=== PATIENT | male | born 1990 ===

== ENCOUNTER 2017-10-30 12:21 | Emergency (ER) | payer SELFPAY ==
--- NOTE | 2017-10-30 15:03 | ED PDOC ---
History of Present Illness History of Present Illness: 26 year old male presents to the ED with a cough productive of white/ yellowish sputum for the last nine days, not associated with chest pain or shortness of breath. Patient is here visiting from [facility] since the beginning of August. Denies palpitations, fever, hemoptysis, leg pain, history of DVT or pulmonary embolism. PMD: none provided HPI: Influenza Time Seen by Provider: 10/30/17 13:51 Chief Complaint: Cough, Cold, Congestion Chief Complaint (Provider): Cough, Cold, Congestion History Per: Patient Exam Limitations: no limitations Have you had recent travel within the past 21 days to any of: No Onset/Duration Of Symptoms: Days (x 9) Symptoms include: cough Past Medical History Reviewed: Historical Data, Nursing Documentation, Vital Signs Vital Signs: Last Vital Signs Temp 96 F L 10/30/17 13:31 Pulse 68 10/30/17 13:31 Resp 20 10/30/17 13:31 BP 146/88 10/30/17 13:31 Pulse Ox 98 10/30/17 13:31 - Medical History PMH: No Chronic Diseases - Surgical History Surgical History: No Surg Hx - Family History Family History: States: Unknown Family Hx - Social History Current smoker - smoking cessation education provided: No - Home Medications Home Medications: Ambulatory Orders Medication Instructions Recorded Azithromycin [Zithromax] 250 mg PO DAILY #6 tab 10/30/17 Promethazine DM [Phenergan DM 5 - 10 ml PO Q8 PRN #120 ml 10/30/17 Syrup] - Allergies Allergies/Adverse Reactions: Allergies Allergy/AdvReac Type Severity Reaction Status Date / Time No Known Allergies Allergy Verified 10/30/17 13:31 Review of Systems ROS Statement: Except As Marked, All Systems Reviewed And Found Negative Respiratory: Positive for: Cough, Sputum (white yellow) Physical Exam - Reviewed Nursing Documentation Reviewed: Yes Vital Signs Reviewed: Yes - Physical Exam Appears: Positive for: Non-toxic, No Acute Distress Head Exam: Positive for: ATRAUMATIC, NORMOCEPHALIC Skin: Positive for: Normal Color, Warm, DRY Eye Exam: Positive for: EOMI, Normal appearance, PERRL ENT: Positive for: Normal ENT Inspection Cardiovascular/Chest: Positive for: Regular Rate, Rhythm Respiratory: Positive for: CNT, Normal Breath Sounds Neurologic/Psych: Positive for: Alert, Oriented (x 3) Medical Decision Making Medical Decision Making: Time; 14:10 Initial Plan: --Chest x -ray Scribe Attestation: Documented by Zoila Llanos, acting as a scribe for Sandeep Madden PA-C Provider Scribe Attestation: All medical record entries made by the Scribe were at my direction and personally dictated by me. I have reviewed the chart and agree that the record accurately reflects my personal performance of the history, physical exam, medical decision making, and the department course for this patient. I have also personally directed, reviewed, and agree with the discharge instructions and disposition. - ECG O2 Sat by Pulse Oximetry: 98 (RA) Pulse Ox Interpretation: Normal - Radiology X-Ray: Interpreted by Me (CXR) X-Ray Interpretation: No Acute Disease Disposition - Clinical Impression Clinical Impression: Acute bronchitis - Patient ED Disposition Is Patient to be Admitted: No - Disposition Referrals: [facility] [place] [Outside] [facility] [Outside] Disposition: Routine/Home Disposition Time: 15:17 Condition: STABLE Additional Instructions: Follow up with [facility] for further evaluation Return to ED immediately if symptoms worsen Prescriptions: Azithromycin [Zithromax] 250 mg PO DAILY #6 tab Promethazine DM [Phenergan DM Syrup] 5 - 10 ml PO Q8 PRN #120 ml PRN Reason: Cough Instructions: Acute Bronchitis, Adult (DC) Forms: [facility] (And[place]ran) Print Language: MONGOLIAN
--- NOTE | 2017-10-30 15:45 | RAD ---
HISTORY: Cough COMPARISON: CA some TECHNIQUE: Chest PA and lateral FINDINGS: LUNGS: No active pulmonary disease. PLEURA: No significant pleural effusion identified. No pneumothorax apparent. CARDIOVASCULAR: Normal. OSSEOUS STRUCTURES: No significant abnormalities. VISUALIZED UPPER ABDOMEN: Normal. OTHER FINDINGS: None. IMPRESSION: No active disease.
[2017-10-30 16:30] VITALS: BP 138/82; PULSE 78; RESP 18; TEMP 97.8; O2SAT 100
== END 2017-10-30 16:30 | disposition home or self-care (01) ==
LOC: H.ER 12:21
DX: J20.9 Acute bronchitis, unspecified (principal)